=== PATIENT | male | born 1965 | race American Indian/Alaskan Native ===

== ENCOUNTER 2016-11-26 15:44 | Outpatient (CLI) | payer OTHER | END 2016-11-26 15:45 | disposition home or self-care (01) | LOC: LABHHL 15:44 | PROVIDERS: ATTEND Internal Medicine Gastroenterology | DX: Z12.11 Encounter for screening for malignant neoplasm of colon (principal) | CPT/HCPCS: 88305 ==

== ENCOUNTER 2016-12-11 09:17 | Outpatient (CLI) | payer OTHER ==
--- NOTE | 2016-12-11 10:13 | Ultrasound Report ---
ULTRASOUND SCROTAL INDICATION: Other hydrocele. COMPARISON: None similar. FINDINGS: Longitudinal and transverse grayscale and color flow sonographic evaluation of the scrotum and its contents demonstrates normal testicular contour and echotexture bilaterally without suspicious intrinsic lesions. Preserved bilateral blood flow. Right testicle estimated at 4.5 x 2.4 x 2.7 cm while the left testicle is 4 x 2.4 x 2.6 cm. Moderate to large hydroceles, left greater than right. Normal epididymi, approximately 1.1 x 0.8 cm on the right. Left epididymis is 1.3 x 0.6 cm and demonstrates an approximately 2 mm possible cyst or spermatocele. CONCLUSION: Left greater than right hydroceles and a tiny left epididymal head cyst without evidence of torsion, as described. Thank you for the opportunity to participate in this patient's care.
== END 2016-12-11 09:18 | disposition home or self-care (01) ==
LOC: US 09:17
PROVIDERS: ATTEND Internal Medicine
DX: N43.2 Other hydrocele (principal); N50.3 Cyst of epididymis; N50.812 Left testicular pain
CPT/HCPCS: 93975

== ENCOUNTER 2019-03-23 10:24 | Outpatient (CLI) | payer OTHER ==
--- NOTE | 2019-03-23 12:10 | Ultrasound Report ---
ULTRASOUND TESTICULAR DOPPLER COMPLETE History: Scrotal swelling. Technique: Trans-scrotal ultrasound with spectral doppler interrogation. Findings: Compared to 12/11/16. The testes are within normal limits for size and echotexture. No evidence for cyst or mass. The epididymides are also unremarkable. Tiny 2 mm epididymal head cyst on the left side is unchanged. A small right hydrocele is identified which is grossly unchanged. A moderate left hydrocele is identified which appears slightly decreased since the comparison exam. Spectral Doppler waveforms demonstrate symmetric arterial flow to both testes. IMPRESSION: Mild improvement in the left hydrocele since 12/11/16. Stable small right hydrocele.
== END 2019-03-23 10:25 | disposition home or self-care (01) ==
LOC: US 10:24
PROVIDERS: ATTEND Urology
DX: N43.3 Hydrocele, unspecified (principal)
CPT/HCPCS: 93975